=== PATIENT | male | born 1990 | race Caucasian/White ===

== ENCOUNTER 2018-04-10 07:11 | Emergency (ER) | payer MEDICAID ==
[2018-04-10] MEDS: KETOROLAC 30 MG INJ IM (07:48)
== END 2018-04-10 08:29 | disposition home or self-care (01) ==
LOC: FTE 07:11
DX: M54.6 Pain in thoracic spine (principal); M62.838 Other muscle spasm; F17.210 Nicotine dependence, cigarettes, uncomplicated; I10 Essential (primary) hypertension
CPT/HCPCS: 96372; 99284-25